=== PATIENT | female | born 2005 | race Caucasian/White ===

== ENCOUNTER 2025-03-05 11:29 | Emergency (ER) | payer SELFPAY ==
[~2025-03-05] VITALS: Ht 157.5 cm; Wt 62.0 kg
[2025-03-05 11:37] VITALS: O2SAT 98
[2025-03-05] MEDS: ONDANSETRON 4MG ODT PO ONE (12:20)
[2025-03-05] MEDS: ACETAMINOPHEN 500MG TABLET PO ONE (12:20)
[2025-03-05 12:21] LABS: CLARITY URINE CLEAR (CLEAR); COLOR URINE YELLOW (YELLOW); GLUCOSE URINE TRACE (NEGATIVE); KETONES URINE NEGATIVE (NEGATIVE); LEUKOCYTE ESTERASE URINE NEGATIVE (NEGATIVE); NITRITE URINE NEGATIVE (NEGATIVE); OCCULT BLOOD URINE 1+ (NEGATIVE); PH URINE 8.5 (4.5-8.0); PROTEIN URINE NEGATIVE (NEGATIVE); SPECIFIC GRAVITY URINE 1.016 (1.005-1.030); UROBILINOGEN URINE 1.0 E.U./dL (0.2-1.0)
[2025-03-05 12:33] LABS: BASOPHILS % 0.3 % (0.0-2.0); EOSINOPHILS % 0.5 % (0.0-5.0); HEMATOCRIT. 37.6 % (36.0-48.0); HEMOGLOBIN. 12.8 g/dL (12.0-16.0); LYMPHOCYTES % 10.0 % (20.0-50.0); MEAN PLATELET VOLUME 7.7 fl (7.4-10.4); MONOCYTES % 11.3 % (2.0-8.0); NEUTROPHILS % 77.9 % (40.0-76.0); PLATELET 277 x1000/uL (130-400); RED BLOOD CELL COUNT 4.21 mill/uL (4.2-5.4); RED CELL DISTRIBUTION WIDTH 13.1 % (11.6-14.6)
[2025-03-05 12:47] LABS: INR 1.0
[2025-03-05 12:49] LABS: CREATININE 0.9 mg/dL (0.6-1.0)
[2025-03-05 12:50] LABS: UREA NITROGEN BLOOD 8 mg/dL (9-23)
[2025-03-05 12:51] LABS: ASPARTATE AMINOTRANSFERASE 18 IU/L (<34); BILIRUBIN DIRECT 0.1 mg/dL (<=3.0)
[2025-03-05 12:52] LABS: BILIRUBIN TOTAL 0.5 mg/dL (0.1-1.0); PROTEIN TOTAL 7.5 g/dL (6.0-8.3)
[2025-03-05] MEDS ORDERED: OSEL30CA MT (12:56)
[2025-03-05] MEDS ORDERED: ACET-2708 MT (12:56)
[2025-03-05 13:09] LABS: HCG SCREEN NEGATIVE
[2025-03-05 13:15] LABS: SQUAMOUS EPITHELIAL CELL URINE 3+ /lpf (RARE/1+)
[2025-03-05 13:16] LABS: BACTERIA URINE 1+
[2025-03-05 13:42] VITALS: BP 101/54; PULSE 89; RESP 18; TEMP 37.1; O2SAT 100
[2025-03-05 13:47] LABS: INFLUENZA TYPE A Presumptive Negative (Pres. Neg.)
[2025-03-05 13:48] LABS: INFLUENZA TYPE B Presumptive Negative (Pres. Neg.)
[2025-03-05 13:55] LABS: RESPIRATORY SYNCYTIAL VIRUS Not Detected (Not Detectd)
== END 2025-03-05 13:51 | disposition home or self-care (01) ==
LOC: ER 12:32
DX: B34.9 Viral infection, unspecified (principal); Z20.822 Contact with and (suspected) exposure to COVID-19; Z79.899 Other long term (current) drug therapy; Z98.890 Other specified postprocedural states
CPT/HCPCS: 99284; 71045; 87426; 80076; 80048; 81003; 81025; 84703; 87430; 83690; 83735; 85025; 85610; 85730; 87420; 87086; 87186; 87070; 87804 ×2; 87077; 36415; Q0162